=== PATIENT | female | born 1960 | race Caucasian/White ===

== ENCOUNTER → 2020-08-23 | Outpatient (CLI) | payer BC, OTHER ==
[~2020-08-23] MED LIST: LIPITOR40 MG PO; LISINOPRIL-HCT1 EAC1 PO; VIMPAT150 MG PO; ZONEGRAN100 MG PO
[2020-08-23 16:57] LABS: CALCIUM 8.8 mg/dL (8.5-10.1); CREATININE 0.9 mg/dL (0.6-1.0); POTASSIUM 3.5 mmol/L (3.5-5.1)
== END ==
LOC: RAD 10:43 → ULTRA 10:43
PROVIDERS: ATTEND Family Medicine
DX: R06.00 Dyspnea, unspecified (principal); R06.02 Shortness of breath; K44.9 Diaphragmatic hernia without obstruction or gangrene

== ENCOUNTER → 2020-08-24 | Outpatient (CLI) | payer BC, OTHER | LOC: SJCVCIMAG 09:38 | PROVIDERS: ATTEND Internal Medicine Cardiovascular Disease | DX: R00.1 Bradycardia, unspecified (principal); R06.00 Dyspnea, unspecified; R07.89 Other chest pain ==

== ENCOUNTER → 2020-08-25 | Outpatient (CLI) | payer BC, OTHER | LOC: SJCVCIMAG 09:29 | PROVIDERS: ATTEND Internal Medicine Cardiovascular Disease | DX: R00.1 Bradycardia, unspecified (principal); R06.00 Dyspnea, unspecified; R53.83 Other fatigue ==

== ENCOUNTER → 2020-08-28 | Outpatient (CLI) | payer BC, OTHER ==
[~2020-08-28] VITALS: Ht 157.5 cm; Wt 59.0 kg
[2020-08-28 10:41] VITALS: BP 134/82
[2020-08-28 11:09] LABS: HEMATOCRIT 39.3 % (37.0-47.0); HEMOGLOBIN 13.4 gm/dL (12.0-15.0); MCH 32.4 pg (26.0-34.0); MCHC 34.2 g/dL (28.0-37.0); MCV 94.8 fL (80.0-100.0); RBC 4.14 mil/uL (4.20-5.00); RDW 12.2 % (10.5-14.5); WBC 7.9 thou/uL (4.0-11.0)
--- NOTE | 2020-08-28 13:19 | CATHLAB ---
[facility] [place] [address] [address] INVASIVE PROCEDURE REPORT Name: RAHUL MCGOWAN Room #: REG Jai Jonathan.#: [id number] Admission: 08/28/20 Attend Phys: Hardeep Rico MD Discharge: Date of : 58 Report #: [id number] THIS REPORT FOR: cc: Kvng Orellana MD, Rene P. MD Park, Jin S. MD ~ APPROVED REPORT Study performed: 08/28/2020 10:54:35 Patient Details Patient Status: Out-Patient Room #: The patient is a 59 year-old female Event Personnel Hardeep Rico Soaker Soda Worker, Octaviano Marshall RN RN, Zully Vazquez RTR, RETAIL PRICING COORDINATOR Monitor, Kel Leigh RTR Scrub Procedures Performed Art Access - R femoral artery* Left Heart Cath w/or w/o Coronaries [id number] [facility] [id number] Initial Mod Sed Same Phys/QHP Gr [id number] Mod Sed Same Phys/QHP Ea 169171 Hemostasis with Manual pressure Indication Dyspnea, Positive stress test Risk Factors Hypercholesterolemia, Hypertension Procedure Narrative The Right Groin^ was infiltrated with 1% Lidocaine subcutaneous anesthesia. A PINNACLE 4FR Sheath #[id number] sheath was inserted into the RFA^. Coronary angiography was performed using coronary diagnostic catheters. The right coronary system was accessed and visualized with a 4FR 3DRC #[id number] catheter. The left coronary system was accessed and visualized with a JL4 catheter. The left ventricle was accessed and visualized with a ANGLED PIGTAIL catheter. Left ventricular/Aortic Valve gradient assessed via catheter pullback. Left ventriculogram was performed in 30 degree projection. Hemostasis was obtained with manual pressure following sheath removal without any complications. The patient tolerated the procedure well and there were no complications associated with the procedure. There was no hematoma. [facility] [address] [place] [address] INVASIVE PROCEDURE REPORT Name: RAHUL MCGOWAN Room #: REG ON LICENSE OF [facility]#: [id number] Admission: 08/28/20 Attend Phys: Hardeep Rico MD Discharge: Date of : 58 Report #: [id number] Intraoperative Conscious Sedation Sedation start time: 11:55 Case end Time: 12:38 Fentanyl 50 mcg Versed 1 mg Fluoro Time: 4.20 minutes Dose: DAP 3139.60 cGycm2 455 mGy Contrast Type and Amount: Omnipaque 100 ml Coronary Angiography The patient's coronary anatomy is co- dominant. Diagnostic Cath Left Main The left main artery is a short segment, with no flow-limiting lesions. LAD The LAD is a moderate-sized caliber vessel, traverses the anterior wall and wraps around the apex. There is minimal plaquing in the proximal and mid segments. Diagonal 1 This is a small to moderate-sized caliber vessel, patent with no flow-limiting lesions. Circumflex Left circumflex artery is a codominant vessel, patent with no flow-limiting lesions. OM1 This is a small to moderate-sized caliber vessel, patent with no flow-limiting lesions. OM2 This is a moderate-sized caliber vessel, supplies several branches as it travels the inferolateral wall. This vessel is patent with no flow-limiting lesions. OM3 This is a small to moderate-sized caliber vessel, patent with no flow-limiting lesions. Right Coronary The RCA is a moderate-sized caliber vessel, patent with no flow-limiting lesions. R PDA This is a small to moderate-sized caliber vessel, patent with no flow-limiting lesions. Left Ventriculography The left ventricle is normal in size with normal contractility. The left ventricular ejection fraction is estimated to be 55-60%. Hemodynamics The aortic pressure is 176/94 mmHg with a mean of 124 mmHg. The left ventricular pressure is 195/12 mmHg with a mean of mmHg. The left ventricular end diastolic pressure is 31 mmHg. Conclusion [facility] [address] [place] [address] INVASIVE PROCEDURE REPORT Name: RAHUL MCGOWAN Room #: REG ON LICENSE OF [facility]#: [id number] Admission: 08/28/20 Attend Phys: Hardeep Rico MD Discharge: Date of : 58 Report #: [id number] 1. Angiographically normal coronary arteries in the left circumflex and RCA. 2. There is minimal plaquing noted in the LAD. 3. There is normal LV systolic function. 4. Recommend risk factor management. 5. Recommend EP evaluation for exercise-induced heart block. <ELECTRONICALLY SIGNED> By: Hardeep Rico MD 08/28/208 17 17 Hardeep Rico MD /INF
== END | disposition home or self-care (01) ==
LOC: CATH 09:31
PROVIDERS: ATTEND Internal Medicine Cardiovascular Disease
DX: R94.39 Abnormal result of other cardiovascular function study (principal); I25.10 Atherosclerotic heart disease of native coronary artery without angina pectoris; R06.00 Dyspnea, unspecified; I10 Essential (primary) hypertension; E78.00 Pure hypercholesterolemia, unspecified; E78.5 Hyperlipidemia, unspecified; Z98.890 Other specified postprocedural states; Z79.899 Other long term (current) drug therapy; Z90.711 Acquired absence of uterus with remaining cervical stump; Z88.8 Allergy status to other drugs, medicaments and biological substances